=== PATIENT | male | born 1980 | race African-American/Black ===

== ENCOUNTER → 2024-09-18 | Day surgery (SDC) | payer OTHER ==
[~2024-09-18] MED LIST: ACETAMINOPHEN 1000 MG/100 ML 100 ML IV ONE; ACETAMINOPHEN 1000 MG/100 ML IV PRN; ASPIRIN 325 MG TAB PO SCH; CELECOXIB 100 MG CAP PO SCH; DIPHENHYDRAMINE HCL INJ 50 MG/ML VIAL IV PRN; DOCUSATE SODIUM 100 MG CAP PO PRN; EPHEDRINE SULFATE INJ 50 MG/ML VIAL ONE; FENTANYL CITRATE/PF 100MCG/2 ML INJ ONE; HYDROCODONE/APAP 5MG-325MG TAB PO PRN; HYDROMORPHONE 2MG/ML ONE; IBUPROFEN400 MG PO; LABETALOL HCL 20 ML ONE; LIDOCAINE HCL 2% LOCAL INJ 5 ML SDV VIAL INJ ONE; LOSARTAN POTAS100 MG PO; METOCLOPRAMIDE HCL 10 MG/2ML VIAL ONE; MIDAZOLAM HCL 2 MG/2 ML VIAL ONE; ONDANSETRON HCL INJ 2MG/ML 2ML 2 MG/ML VIAL IV PRN; ONDANSETRON HCL INJ 2MG/ML 2ML 2 MG/ML VIAL ONE; PROPOFOL IV EMULSION 10 MG/ML 20 ML VIAL ONE; ROPIVACAINE/EPI/CLONIDINE/KET 50 ML SYRINGE INJ ONE; SEVOFLURANE INHAL SOLN 250 ML PEN BTL ONE; SODIUM CHLORIDE 0.9% 1000ML 1,000 ML IV SCH; SODIUM CHLORIDE 0.9% 200 ML ONE
[2024-09-18] MEDS: LACTATED RINGER'S 1,000 ML ONE (06:06)
[2024-09-18] MEDS: CEFAZOLIN SODIUM 2 GM ONE (06:07)
[2024-09-18] MEDS: CELECOXIB 200 MG CAP ONE (06:08)
[2024-09-18] MEDS: GABAPENTIN 300 MG CAP ONE (06:08)
[2024-09-18] MEDS: DEXAMETHASONE SOD PHOS 10 MG/1 ML VIAL ONE (06:09)
[2024-09-18 10:25] VITALS: TEMP 96.9
[2024-09-18] MEDS: HYDROMORPHONE 1MG/1ML INJ ONE (10:50)
[2024-09-18] MEDS: HYDROCODONE/APAP 7.5MG-325MG 1 EA TAB PO PRN (11:37)
[2024-09-18] MEDS: HYDROCODONE/APAP 7.5MG-325MG 1 EA TAB ONE (11:55)
[2024-09-18 13:30] VITALS: BP 154/86; PULSE 92; RESP 18; O2SAT 98
== END | disposition home health service (06) ==
LOC: OR 05:19
PROVIDERS: ATTEND Specialist
DX: M16.11 Unilateral primary osteoarthritis, right hip (principal); M24.551 Contracture, right hip; E66.9 Obesity, unspecified; Z68.38 Body mass index [BMI] 38.0-38.9, adult; I10 Essential (primary) hypertension; Z71.3 Dietary counseling and surveillance; R73.03 Prediabetes; F17.200 Nicotine dependence, unspecified, uncomplicated; Z01.812 Encounter for preprocedural laboratory examination; Z79.899 Other long term (current) drug therapy
CPT/HCPCS: 27130; 72170; 86850; 86900; 97116; 97161; 97530; C1713 ×2; J0131; J1100; J1171 ×2; J2003; J2250; J2405; J2704; J2765; J3010; J3490; J7050; J7121